=== PATIENT | female | born 1980 | race Two or more races ===

== ENCOUNTER 2019-12-04 07:05 | Outpatient (CLI) | payer OTHER | END 2019-12-04 07:35 | disposition home or self-care (01) | LOC: LAB 07:05 | PROVIDERS: ATTEND Internal Medicine Cardiovascular Disease | DX: M12.89 Other specific arthropathies, not elsewhere classified, multiple sites (principal); M10.9 Gout, unspecified ==

== ENCOUNTER 2019-12-07 07:51 | Outpatient (CLI) | payer OTHER | END 2019-12-07 08:06 | disposition home or self-care (01) | LOC: NUCLEAR 07:51 | PROVIDERS: ATTEND Internal Medicine Cardiovascular Disease | DX: M19.90 Unspecified osteoarthritis, unspecified site (principal) | CPT/HCPCS: 78315; A9503 ==

== ENCOUNTER 2019-12-09 11:34 | Outpatient (CLI) | payer OTHER | END 2019-12-09 11:47 | disposition home or self-care (01) | LOC: SONOGRAMA 11:34 | PROVIDERS: ATTEND Internal Medicine Cardiovascular Disease | DX: M12.862 Other specific arthropathies, not elsewhere classified, left knee (principal); M12.811 Other specific arthropathies, not elsewhere classified, right shoulder ==

== ENCOUNTER 2019-12-17 15:13 | Outpatient (CLI) | payer OTHER | END 2019-12-17 15:25 | disposition home or self-care (01) | LOC: RAD 15:13 | PROVIDERS: ATTEND Orthopaedic Surgery | DX: M79.642 Pain in left hand (principal); M25.561 Pain in right knee; M25.562 Pain in left knee; Z01.818 Encounter for other preprocedural examination ==

== ENCOUNTER 2019-12-18 08:06 | Outpatient (CLI) | payer OTHER | END 2019-12-18 08:18 | disposition home or self-care (01) | LOC: NUCLEAR 08:06 | PROVIDERS: ATTEND Internal Medicine Cardiovascular Disease | DX: I10 Essential (primary) hypertension (principal); J44.9 Chronic obstructive pulmonary disease, unspecified ==

== ENCOUNTER 2019-12-22 11:07 | Outpatient (CLI) | payer OTHER | END 2019-12-22 11:40 | disposition home or self-care (01) | LOC: LAB 11:07 | DX: M05.89 Other rheumatoid arthritis with rheumatoid factor of multiple sites (principal); M40.00 Postural kyphosis, site unspecified; M32.8 Other forms of systemic lupus erythematosus; M13.0 Polyarthritis, unspecified; M35.8 Other specified systemic involvement of connective tissue ==

== ENCOUNTER 2020-05-26 12:54 | Outpatient (CLI) | payer OTHER | END 2020-05-26 13:10 | disposition home or self-care (01) | LOC: LAB 12:54 | PROVIDERS: ATTEND Neuromusculoskeletal Medicine & OMM | DX: M06.89 Other specified rheumatoid arthritis, multiple sites (principal); R05 Cough; R06.2 Wheezing; R50.9 Fever, unspecified; Z20.822 Contact with and (suspected) exposure to COVID-19 ==

== ENCOUNTER 2020-08-24 10:50 | Outpatient (CLI) | payer OTHER | END 2020-08-24 10:59 | disposition home or self-care (01) | LOC: LAB 10:50 | DX: M06.9 Rheumatoid arthritis, unspecified (principal) ==

== ENCOUNTER 2022-09-11 22:27 | Emergency (ER) | payer OTHER ==
[~2022-09-11] VITALS: Ht 170.2 cm; Wt 117.9 kg
== END 2022-09-12 01:58 | disposition home or self-care (01) ==
LOC: ER 22:27
DX: S91.22 Laceration with foreign body of toe with damage to nail (principal); X58.XXXA Exposure to other specified factors, initial encounter; Y93.89 Activity, other specified; Y92.89 Other specified places as the place of occurrence of the external cause; Y99.8 Other external cause status; L60.1 Onycholysis

== ENCOUNTER 2023-04-28 22:49 | Emergency (ER) | payer OTHER ==
[~2023-04-28] VITALS: Ht 167.6 cm; Wt 90.7 kg
[2023-04-29] MEDS ORDERED: KETOROLAC TROMETHAMINE 60 MG VIAL IM STA (01:14)
[2023-04-29] MEDS ORDERED: CEFTRIAXONE SODIUM 1,000 MG VIAL IM STA (01:15)
[2023-04-29] MEDS ORDERED: DUI500 PO (01:31)
[2023-04-29] MEDS ORDERED: KETO10TA2 PO (01:31)
== END 2023-04-29 01:37 | disposition home or self-care (01) ==
LOC: ER 22:49
DX: K08.89 Other specified disorders of teeth and supporting structures (principal); E03.9 Hypothyroidism, unspecified